=== PATIENT | male | born 1960 | race Caucasian/White ===

== ENCOUNTER 2016-08-28 16:27 | Emergency (ER) | payer OTHER ==
[~2016-08-28] VITALS: Ht 182.9 cm; Wt 80.3 kg
[2016-08-28] MEDS ORDERED: TRAMADOL 50 MG50 MG PO (17:17)
[2016-08-28 17:35] VITALS: BP 130/81
== END 2016-08-28 17:39 | disposition home or self-care (01) ==
LOC: ER 16:27
DX: S83.8X2A Sprain of other specified parts of left knee, initial encounter (principal); X50.1XXA Overexertion from prolonged static or awkward postures, initial encounter; Y93.84 Activity, sleeping; Y92.89 Other specified places as the place of occurrence of the external cause; Y99.8 Other external cause status; Z77.22 Contact with and (suspected) exposure to environmental tobacco smoke (acute) (chronic)